=== PATIENT | male | born 1955 | race Caucasian/White ===

== ENCOUNTER → 2018-05-24 | Outpatient (REF) | payer BC | LOC: M SFHCLERA 16:38 | DX: J02.9 Acute pharyngitis, unspecified (principal) ==

== ENCOUNTER → 2018-05-24 | Outpatient (CLI) | payer BC | LOC: M LRY 16:14 | DX: R05 Cough (principal); J84.10 Pulmonary fibrosis, unspecified; J98.11 Atelectasis | CPT/HCPCS: 71046 ==

== ENCOUNTER 2019-02-10 06:53 | Day surgery (SDC) | payer BC ==
[~2019-02-10] VITALS: Ht 170.2 cm; Wt 85.6 kg
[~2019-02-10 06:53] MED LIST: ACETAMINOPHEN 325 MG TAB PO PRN; ADV100INH INH; LEVO25TA5 PO; MONT10TA2 PO; PROAAER10 INH
[2019-02-10] MEDS ORDERED: MIDAZOLAM INJ 2 MG/2 ML VIAL (J2250) As Ordered ONE ×2 (07:15→09:51)
[2019-02-10] MEDS: PROPARACAINE 0.5% OPHTH SOL 15ML OD ONE (07:29)
[2019-02-10] MEDS: PHENYLEPHRINE 2.5% OPHTH SOL 2ML OD ONE (07:29)
[2019-02-10] MEDS: TROPICAMIDE 1% OPHTH SOLN 2ML OD ONE (07:29)
[2019-02-10] MEDS: OFLOXACIN 0.3 % (OCUFLOX) OPTH SOL 5ML OD ONE (07:29)
[2019-02-10] MEDS ORDERED: fentaNYL 100 MCG/2 ML INJECTION (J3010) As Ordered ONE ×2 (09:00→09:22)
[2019-02-10] MEDS: POVIDONE-IODINE 5% OPHTH PREP SOL 30ML As Ordered ONE (09:09)
[2019-02-10] MEDS: DUOVISC (0.50ML VISCOAT/0.55ML PROVISC) OPHTH KIT As Ordered ONE ×2 (09:10→09:18)
[2019-02-10] MEDS: BALANCED SALT IRRIGATION SOLUTION 500ML BAG (FOR OR EYE MACHINE) As Ordered ONE (09:10)
[2019-02-10] MEDS: LIDOCAINE 0.75%/EPINEPHRINE 0.025% IN BSS 1ML SYR INTRACAMERAL (OR ONLY) As Ordered ONE (09:10)
[2019-02-10] MEDS: CEFUROXIME 1MG/0.1ML INTRACAMERAL INJ As Ordered ONE (09:10)
[2019-02-10] MEDS: ACETYLCHOLINE OPHTH SOLN 1% 2ML (MIOCHOL-E) As Ordered ONE ×2 (09:53→10:04)
[2019-02-10] MEDS: TRIAMCINOLONE PRES FR 40 MG/ML 1ML(TRIESENCE)(OR EYE ONLY)(J3300 PER 1MG) As Ordered ONE (09:53)
[2019-02-10] MEDS ORDERED: TOBRADEX OPHTH OINT 3.5 GM As Ordered ONE (10:19)
[2019-02-10 10:40] VITALS: BP 134/87
[2019-02-10] MEDS ORDERED: ONDANSETRON 4MG/2ML VIAL (J2405) IV PRN (11:00)
[2019-02-10] MEDS ORDERED: TRIMETHOBENZAMIDE 300 MG CAP PO PRN (11:00)
--- NOTE | 2019-02-15 16:13 | RO ---
DATE OF PROCEDURE: 02/10/2019 PREOPERATIVE DIAGNOSES: 1. Hypermature cataract of the right eye. 2. Longstanding history of amblyopia of the right eye 3. Small pupil, right eye 4. Iris synechiae, right eye POSTOPERATIVE DIAGNOSES: 1. Hypermature cataract of the right eye. 2. Longstanding history of amblyopia right eye. 3. Posterior capsular tear, right eye 4. Floppy iris syndrome, right eye 5. Iris synechiae, right eye PROCEDURE: 1. Extracapsular cataract removal, insertion of an intraocular lens implant of the right eye with use of a [id number], 27.5 D and use of femtosecond laser. 2. Lysis of iris synechiae, right eye 3. Anterior vitrectomy, right eye 4. Placement of iRing, right eye SURGEON: Dr. Tarun Shirley BIOMASS FACILITATOR: ANESTHESIA: DESCRIPTION OF PROCEDURE: Patient was seen and identified in the preoperative area. The consent was reviewed, and the surgical eye was marked. The patient received topical anesthetics, antibiotics, and dilating drops to the surface of the surgical eye. Patient was then transferred to the laser room. The patient was placed under the laser. The laser was performed with a 4.8 capsulotomy and nuclear fragmentation as well as a single temporal limbal relaxing incision. The patient tolerated the laser well and was transferred to the operating room. The patient was prepped and draped in a sterile fashion. A time-out was performed, reidentifying the surgical eye at that time. Tegaderm tape was used to isolate the upper and lower eyelids, and a wire lid speculum was placed. Using a 1.0 mm paracentesis incision, this was performed. Shugarcaine was placed into the anterior chamber, and then viscoelastic was placed. A temporal 2.4 mm clear corneal incision was performed with a sharp-tipped keratome. Using Utrata forceps, the free-floating capsulotomy was gently removed. There was one area at approximately 10 o'clock of iris-lens adhesion. This was freed with viscoelastic and use of a cyclodialysis spatula. Careful attention and inspection of the capsule was performed at that time, and it was found to be 360 degrees continuous. It was felt that the pupil was poorly dilated, so a [place] Visitec iRing was placed onto the iris and used to expand the pupil. Balanced salt solution (BSS) was gently injected around the dense cataract to perform hydrodissection, and then the lens was rotated without difficulty. Using a dense setting on the phacoemulsification, the lens was sculpted and then cracked into segments and then removed without difficulty. Irrigation/aspiration was then performed with removal of about 30% of the cortical material. It was noted at that time there was a posterior capsular tear with vitreous present into the anterior chamber. At that time, the irrigation was continued and dispersive viscoelastic was injected into the posterior capsular tear, and then the irrigation/aspiration handpiece was removed. Triesence was injected into the anterior chamber, identifying vitreous, and vitrectomy was set up on the phacoemulsification machine. Using cut I/A first, the vitreous was removed from the anterior chamber, and then I/A cut was used to further remove any vitreous and cortical material that was able to be easily accessed. Some cortical material was left. Triesence was reinjected and it was found that there was no vitreous in the anterior chamber at that time. A weck spear was used to check the incision and no vitreous was present. The decision was made to place a three-piece intraocular lens implant in the ciliary sulcus. Cohesive viscoelastic was injected into the sulcus, and the I-Ring was removed; and then the three-piece intraocular lens was injected without difficulty, showing stability and was centered well into the sulcus. There was significant iris prolapse. Multiple attempts to position the iris back into the eye using cohesive and dispersive viscoelastic as well as iris sweeps from an inferior paracentesis were eventually successful. Miochol was placed, showing a moderately mid dilated pupil with a mild iris defect temporally. Gentle irrigation/aspiration was used to remove all viscoelastic from the anterior chamber. Four #10-0 nylon sutures were placed into the temporal clear corneal incision, and then ReSure was used to seal it further. Antibiotic was injected into the anterior chamber, and then a Weck spear was used to check incisions for leak and vitreous. No leaks and no vitreous were found at that time. The patient was discharged to the post anesthesia care unit (PACU) after TobraDex was placed and a patch over the eye in a stable condition. ADELIA
== END 2019-02-10 10:55 | disposition home or self-care (01) ==
LOC: M SDC 06:53
PROVIDERS: ATTEND Ophthalmology
DX: H25.21 Age-related cataract, morgagnian type, right eye (principal); H53.001 Unspecified amblyopia, right eye; H59.211 Accidental puncture and laceration of right eye and adnexa during an ophthalmic procedure; H21.81 Floppy iris syndrome; H21.521 Goniosynechiae, right eye; J45.909 Unspecified asthma, uncomplicated; M12.9 Arthropathy, unspecified; E03.9 Hypothyroidism, unspecified; R01.1 Cardiac murmur, unspecified; R06.83 Snoring; Z91.030 Bee allergy status; Z91.040 Latex allergy status; Z79.899 Other long term (current) drug therapy

== ENCOUNTER → 2019-12-22 | Outpatient (CLI) | payer BC ==
[~2019-12-22] MED LIST changes: -ACETAMINOPHEN 325 MG TAB PO PRN; +LEVO-86 PO; +LEVO75TA4 PO; -MONT10TA2 PO; +MONT10TA4 PO; +SING10TA32 PO
== END ==
LOC: M LABSMTC 10:43
PROVIDERS: ATTEND Anesthesiology
DX: Z03.818 Encounter for observation for suspected exposure to other biological agents ruled out (principal); Z11.59 Encounter for screening for other viral diseases
CPT/HCPCS: C9803; U0003

== ENCOUNTER 2019-12-27 09:52 | Day surgery (SDC) | payer BC ==
[~2019-12-27] VITALS: Ht 165.1 cm; Wt 85.7 kg
[~2019-12-27 09:52] MED LIST changes: +NS 1,000 ML IV ONE
[2019-12-27] MEDS ORDERED: LIDOCAINE 2% 100MG/5ML SDV (FOR ANES.) As Ordered ONE (11:17)
[2019-12-27] MEDS ORDERED: propofoL 200 MG/20 ML VIAL As Ordered ONE ×2 (11:17→11:49)
--- NOTE | 2019-12-27 12:10 | ROOR ---
Patient Name: Sloan Galan Procedure Date: 12/27/2019 11:35 AM Date of : 1955 Age: 64 Room: [facility] Gender: Male Note Status: Finalized Procedure: Total Colonoscopy to Cecum + Biopsy Polypectomy Indications: Screening for colorectal malignant neoplasm, Last colonoscopy: 2008 Providers: Geoff Shirley MD Referring MD: Janiya Holland DO Requesting Provider: Medicines: Monitored Anesthesia Care Complications: No immediate complications. Procedure: Pre-Anesthesia Assessment: - The heart rate, respiratory rate, oxygen saturations, blood pressure, adequacy of pulmonary ventilation, and response to care were monitored throughout the procedure. The Colonoscope was introduced through the anus and advanced to the cecum, identified by appendiceal orifice and ileocecal valve. The colonoscopy was performed without difficulty. The patient tolerated the procedure well. The quality of the bowel preparation was excellent. Findings: The perianal and digital rectal examinations were normal. Non-bleeding internal hemorrhoids were found during retroflexion. The hemorrhoids were small and Grade I (internal hemorrhoids that do not prolapse). A small polyp was found at 40 cm proximal to the anus. The polyp was sessile. The polyp was removed with a jumbo cold forceps. Resection and retrieval were complete. A small polyp was found in the cecum. The polyp was sessile. The polyp was removed with a jumbo cold forceps. Resection and retrieval were complete. The exam was otherwise without abnormality on direct and retroflexion views. Impression: - Non-bleeding internal hemorrhoids. - One small polyp at 40 cm proximal to the anus, removed with a jumbo cold forceps. Resected and retrieved. - One small polyp in the cecum, removed with a jumbo cold forceps. Resected and retrieved. - The examination was otherwise normal on direct and retroflexion views. - The exam was otherwise normal to the cecum. Recommendation: - Patient has a contact number available for emergencies. The signs and symptoms of potential delayed complications were discussed with the patient. Return to normal activities tomorrow. Written discharge instructions were provided to the patient. - High fiber diet. - Discharge patient to home. - Continue present medications. - Await pathology results. - Telephone GI clinic for pathology results in 1 week. - Repeat colonoscopy for surveillance based on pathology results. - Return to referring physician. - The findings and recommendations were discussed with the patient. Geoff Shirley MD Geoff Shirley MD 12/27/2019 12:09:29 PM Electronically signed by Geoff Shirley MD Number of Addenda: 0 Note Initiated On: 12/27/2019 11:35 AM Estimated Blood Loss: Estimated blood loss: none.
[2019-12-27 12:45] VITALS: BP 117/74
== END 2019-12-27 12:52 | disposition home or self-care (01) ==
LOC: M OPP 09:52
PROVIDERS: ATTEND Internal Medicine Gastroenterology
DX: Z12.11 Encounter for screening for malignant neoplasm of colon (principal); D12.6 Benign neoplasm of colon, unspecified; K64.0 First degree hemorrhoids; E03.9 Hypothyroidism, unspecified; Z79.899 Other long term (current) drug therapy; Z91.030 Bee allergy status; Z91.040 Latex allergy status; Z87.891 Personal history of nicotine dependence

== ENCOUNTER → 2024-02-02 | Outpatient (CLI) | payer BC, MEDICARE ==
[~2024-02-02] MED LIST changes: +MONT-5 PO; -MONT10TA4 PO; +MONT10TA97 PO; -NS 1,000 ML IV ONE; -SING10TA32 PO
[2024-02-02 09:35] LABS: HEMATOCRIT 43.1 % (42.0-52.0); HEMOGLOBIN 14.8 g/dl (13.5-17.5); MEAN CORPUSCULAR HEMOGLOBIN 31.3 pg (27.0-33.0); MEAN CORPUSCULAR HGB CONC 34.3 g/dl (32.0-36.5); MEAN CORPUSCULAR VOLUME 91.1 fl (80.0-96.0); PLATELET COUNT, AUTOMATED 213 10^3/uL (150-450); RED BLOOD COUNT 4.73 10^6/uL (4.30-6.10); WHITE BLOOD COUNT 4.2 10^3/uL (4.0-10.0)
[2024-02-02 09:41] LABS: ERYTHROCYTE SEDIMENTATION RATE 8 mm/hr (0-20)
[2024-02-02 10:09] LABS: C REACTIVE PROTEIN QUANTITATIV < 0.40 MG/DL (<1.0)
[2024-02-02 10:11] LABS: ALBUMIN 4.2 G/DL (3.2-5.2); ALKALINE PHOSPHATASE 49 U/L (46-116); ALT/SGPT 27 U/L (7.0-40); AST/SGOT 15 U/L (<34); BILIRUBIN,TOTAL 0.6 MG/DL (0.3-1.2); BLOOD UREA NITROGEN 12 MG/DL (9-23); CALCIUM LEVEL 9.3 MG/DL (8.3-10.6); CARBON DIOXIDE LEVEL 29 MMOL/L (20-31); CHLORIDE LEVEL 106 MMOL/L (98-107); CHOLESTEROL LEVEL 206 MG/DL (<200); CHOLESTEROL RISK RATIO 4.03 (<5); CREATININE FOR GFR 0.85 MG/DL (0.70-1.30); GLOMERULAR FILTRATION RATE > 60.0 (>49); GLUCOSE, FASTING 108 MG/DL (74-106); POTASSIUM SERUM 4.4 MMOL/L (3.5-5.1); RHEUMATOID FACTOR QUANT 6.9 IU/ML (<14); SODIUM LEVEL 138 MMOL/L (136-145); TOTAL PROTEIN 7.5 G/DL (5.7-8.2); TRIGLYCERIDES LEVEL 105 MG/DL (<150)
[2024-02-02 10:12] LABS: HEMOGLOBIN A1c 5.5 % (4.0-6.0)
[2024-02-02 10:13] LABS: FREE T4 1.26 NG/DL (0.89-1.76); THYROID STIMULATING HORMONE 4.453 uIU/ML (0.55-4.78)
[2024-02-03 14:57] LABS: ANA SCREEN, IFA NEGATIVE (NEGATIVE); SSA SJOGRENS A <1.0 NEG AI (<1.0 NEG); SSB SJOGRENS B <1.0 NEG AI (<1.0 NEG)
[2024-02-04 11:43] LABS: PSA % FREE 8 % (calc) (>25); PSA FREE 0.1 ng/mL; PSA TOTAL 1.3 ng/mL (< OR = 4.0)
[2024-02-05 01:57] LABS: CYCLIC CITRULLINATED PEPTIDE < 16 UNITS (<20)
== END ==
LOC: M RAD 08:17
PROVIDERS: ATTEND Physician Assistant
DX: M19.041 Primary osteoarthritis, right hand (principal); M19.042 Primary osteoarthritis, left hand; E03.9 Hypothyroidism, unspecified; N40.1 Benign prostatic hyperplasia with lower urinary tract symptoms; Z79.899 Other long term (current) drug therapy

== ENCOUNTER → 2025-04-11 | Outpatient (CLI) | payer MEDICARE ==
[~2025-04-11] MED LIST changes: -ADV100INH INH; +ADVA1AER8 INH; +ALBU8.5H; +E-Z-GAS II EFFERVESCENT PACKET (SODIUM BICARB./CITRIC ACID/SIMETHICONE) As Ordered ONE; +E-Z-HD 98% w/w 340 GM SUSP BTL As Ordered ONE; +E-Z-PAQUE 96% w/w SUSP 176 GM BTL As Ordered ONE; +FINA5TAB2 PO; +LEVO100T5 PO; +TAMS1CAP17 PO
== END ==
LOC: M RAD 09:15
PROVIDERS: ATTEND Physician Assistant Medical
DX: R13.10 Dysphagia, unspecified (principal)